=== PATIENT | female | born 1960 | race Caucasian/White ===

== ENCOUNTER 2018-02-01 19:26 | Emergency (ER) | payer OTHER ==
[2018-02-01 19:45] VITALS: BP 146/77
--- NOTE | 2018-02-01 20:03 | RAD ---
HISTORY: Pain, fall COMPARISONS: May 15, 2009 VIEWS: 3, Frontal, lateral, and oblique views of the right ankle FINDINGS: BONE DENSITY: Normal. BONES: There is no displaced fracture. JOINTS: There is no arthropathy. ALIGNMENT: There is no dislocation. SOFT TISSUES: Unremarkable. OTHER FINDINGS: None. IMPRESSION: NO ACUTE OSSEOUS INJURY. IF SYMPTOMS PERSIST, RECOMMEND REPEAT IMAGING.
--- NOTE | 2018-02-01 20:08 | UC ---
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 - History of Current Complaint Chief Complaint: UCLowerExtremity Stated Complaint: ANKLE INJURY Time Seen by Provider: 02/01/18 19:54 Hx Obtained From: Patient Onset/Duration: Sudden Onset Severity Initially: Moderate Severity Currently: Moderate Pain Intensity: 7 Pain Scale Used: 0-10 Numeric Aggravating Factor(s): Standing, Ambulation Alleviating Factor(s): Rest Able to Bear Weight: Yes - Allergies/Home Medications Allergies/Adverse Reactions: Allergies Allergy/AdvReac Type Severity Reaction Status Date / Time No Known Allergies Allergy Verified 02/01/18 19:45 PMH/Surg Hx/FS Hx/Imm Hx Previously Healthy: Yes - Surgical History Surgical History: Yes Surgery Procedure, Year, and Place: HYSTERECTOMY, RIGHT BREAST BIOPSY (BENIGN), TUBAL LIGATION, CHOLECYSTECTOMY - Family History Known Family History: Positive: Hypertension - Social History Alcohol Use: Rare Substance Use Type: None Smoking Status (MU): Never Smoked Tobacco Review of Systems Constitutional: Negative Skin: Negative Eyes: Negative ENT: Negative Respiratory: Negative Cardiovascular: Negative Gastrointestinal: Negative Genitourinary: Negative Motor: Negative Neurovascular: Negative Musculoskeletal: Arthralgia Neurological: Negative Psychological: Negative Is Patient Immunocompromised?: No All Other Systems Reviewed And Are Negative: Yes Physical Exam Triage Information Reviewed: Yes Appearance: Well-Appearing, No Pain Distress, Well-Nourished Vital Signs: Initial Vital Signs Temp 98.2 F 02/01/18 19:41 Pulse 100 02/01/18 19:41 Resp 16 02/01/18 19:41 BP 146/77 02/01/18 19:41 Pulse Ox 99 02/01/18 19:41 Vital Signs Reviewed: Yes Eyes: Positive: Conjunctiva Clear ENT: Positive: Hearing grossly normal. Negative: Nasal congestion, Nasal drainage, Muffled voice, Hoarse voice Neck: Positive: Supple, Nontender Respiratory: Positive: Chest non-tender, Lungs clear, Normal breath sounds, No respiratory distress Cardiovascular: Positive: RRR, No Murmur Musculoskeletal: Positive: Strength Intact, ROM Limited @ - right ankle, Edema @ - LM, Other: - achilles intact Neurological: Positive: Alert, Muscle Tone Normal Psychological Exam: Normal Skin Exam: Normal Diagnostics - Radiology No standard instances Xray Interpretation: No Acute Changes Radiology Interpretation Completed By: Radiologist Lower Extremity Course/Dx - Differential Dx/Diagnosis Provider Diagnoses: right ankle sprain Discharge - Sign-Out/Discharge Documenting (check all that apply): Discharge/Admit/Transfer - Discharge Plan Condition: Stable Disposition: HOME Patient Education Materials: Ankle Sprain (ED), R.I.C.E. Treatment (ED) Forms: *Work Release Referrals: Tomi Tinsley MD [Primary Care Provider] - Additional Instructions: rest elevate ice CAM boot crutches- may do light touch down as tolerated start wt bearing when able see your MD in 2 weeks if not wt bearing pain free advil or aleve - Billing Disposition and Condition Condition: STABLE Disposition: HOME
== END 2018-02-01 20:33 | disposition home or self-care (01) ==
LOC: UCEAST 19:26
DX: S93.401A Sprain of unspecified ligament of right ankle, initial encounter (principal); X50.1XXA Overexertion from prolonged static or awkward postures, initial encounter; Y93.9 Activity, unspecified; Y92.9 Unspecified place or not applicable
CPT/HCPCS: 99213; G0463

== ENCOUNTER 2018-10-12 08:50 | Day surgery (SDC) | payer OTHER ==
[~2018-10-12 08:50] MED LIST: Buffered Lidocaine 0.9% SYRIN* 5 ML/SYR SYRINGE INTRADERM ONE
[2018-10-12] MEDS ORDERED: Cyclopentolate 1% OPTH.SOL* 2 ML BTL ONE (09:17)
[2018-10-12] MEDS ORDERED: Neomycin/Polymy/Dex OPHTH.OIN* 3.5 GM ONE (09:18)
[2018-10-12] MEDS ORDERED: Ketorolac 0.5% OPHTH (NF) 0.5 % 5 ML BTL ONE (09:18)
[2018-10-12] MEDS ORDERED: Tetracaine 0.5% OPTH.SOL 4 ML* 1 DROP BTL ONE (09:18)
[2018-10-12] MEDS ORDERED: Tropicamide 1% OPTH.SOL* BTL ONE (09:18)
[2018-10-12] MEDS ORDERED: Lidocaine 1%* 5 ML VIAL ONE (09:18)
[2018-10-12] MEDS ORDERED: Midazolam* 1 MG/ML 2 ML VIAL (2 MG) ONE (11:03)
[2018-10-12 11:31] VITALS: BP 150/74
--- NOTE | 2018-10-12 13:14 | OP ---
DATE OF OPERATION/DATE OF DICTATION: 10/12/2018 - [facility] DATE OF : 1960. SURGEON: Dr. Alexy Diaz. PRESCHOOL PROGRAM DIRECTOR: None. ANESTHESIA: Topical with intravenous sedation. PRE-OP DIAGNOSIS: Cataract, right eye. POST-OP DIAGNOSIS: Cataract, right eye. OPERATIVE PROCEDURE: Phacoemulsification and cataract extraction with posterior chamber intraocular lens implant, right eye. COMPLICATIONS: None. BLOOD LOSS: None. DESCRIPTION OF PROCEDURE: The patient was brought to the operating room and received a small amount of intra-venous sedation. A drop of Tetracaine was placed in her right eye. She was prepped and draped in the usual sterile fashion for ophthalmic surgery and attention was directed to the right eye where a speculum was placed. A paracentesis was created at the 11 o'clock position and 0.1 cc of 1 percent preservative-free Lidocaine was injected into the anterior chamber followed by DisCoVisc. The eye was digitally stabilized while a 2.75 mm keratome was used to create a triplanar clear corneal incision at the 9 o'clock position. A continuous curvilinear capsulorrhexis was created with a cystotome and Utrata forceps. BSS on a cannula was used to hydrodissect the lens from the capsule. Phacoemulsification was performed in a divide-and- conquer technique to create four fragments which were removed. Residual cortical material was removed with irrigation and aspiration. DisCoVisc was used to inflate the capsular bag and an AUOOTO 16.5 diopter lens was folded and inserted into the capsular bag. DisCoVisc was removed using irrigation and aspiration. BSS on a cannula was used to hydrate the corneal stroma and seal the wound. At the end of the case the pupil was round and the lens was centered. The eye was of normal pressure and the wound was water tight. The speculum was removed and topical Maxitrol ointment was placed on the surface of the eye. The eye was closed, patched and shielded and the patient was sent to the recovery room in stable condition with post operative instructions and follow-up appointment given. [id number]/CPS #: [id number] MTDD
== END 2018-10-12 11:38 | disposition home or self-care (01) ==
LOC: OREAST 08:50
PROVIDERS: ATTEND Ophthalmology
DX: H25.11 Age-related nuclear cataract, right eye (principal); I10 Essential (primary) hypertension; J45.909 Unspecified asthma, uncomplicated; K21.9 Gastro-esophageal reflux disease without esophagitis; F41.8 Other specified anxiety disorders; E78.00 Pure hypercholesterolemia, unspecified
CPT/HCPCS: A9270-GY; J2250; V2632

== ENCOUNTER 2018-10-19 06:37 | Day surgery (SDC) | payer OTHER ==
[2018-10-19] MEDS ORDERED: Buffered Lidocaine 1% SYRIN* 1 ML/SYRINGE INTRADERM ONE (07:08)
[2018-10-19] MEDS ORDERED: Midazolam* 1 MG/ML 2 ML VIAL (2 MG) ONE (07:35)
[2018-10-19] MEDS ORDERED: fentaNYL* 50 MCG/ML 2 ML VIAL (100 MCG VIAL) ONE (07:35)
[2018-10-19 08:51] VITALS: BP 130/78
[2018-10-19] MEDS ORDERED: Cyclopentolate 1% OPTH.SOL* 2 ML BTL ONE (11:11)
[2018-10-19] MEDS ORDERED: Ketorolac 0.5% OPHTH (NF) 0.5 % 5 ML BTL ONE (11:11)
[2018-10-19] MEDS ORDERED: Tetracaine 0.5% OPTH.SOL 4 ML* 1 DROP BTL ONE (11:11)
[2018-10-19] MEDS ORDERED: Phenylephrine 2.5% OPTH.SOL* 2 ML BTL ONE (11:11)
[2018-10-19] MEDS ORDERED: Lidocaine 1%* 5 ML VIAL ONE (11:11)
[2018-10-19] MEDS ORDERED: Tropicamide 1% OPTH.SOL* BTL ONE (11:11)
[2018-10-19] MEDS ORDERED: Neomycin/Polymy/Dex OPHTH.OIN* 3.5 GM ONE (11:11)
--- NOTE | 2018-10-19 14:59 | OP ---
DATE OF OPERATION: 10/19/18 [facility] DATE OF : 60 SURGEON: Dr. Alexy Diaz. PERINATAL TECH: None. ANESTHESIA: Topical with intravenous sedation. PRE-OP DIAGNOSIS: Cataract in the left eye with stigmatism. POST-OP DIAGNOSIS: Cataract in the left eye with stigmatism. OPERATIVE PROCEDURE: Phacoemulsification and cataract extraction with posterior chamber intraocular Toric lens implant. COMPLICATIONS: None. BLOOD LOSS: None. DESCRIPTION OF PROCEDURE: The patient was seen preoperatively in the holding area, where she was sat in an upright position. A lilia was made at the 6 o' clock position of the limbus of the left eye with a marking pen. The patient was subsequently brought to the operating room where she was given a small amount of intravenous sedation and a drop of Tetracaine was placed in her left eye. She was prepped and draped in the usual sterile fashion for ophthalmic surgery and attention was directed to the left eye where a speculum was placed. A paracentesis was created at the 5 o'clock position and 0.1 cc of 1% preservative-free Lidocaine was injected into the anterior chamber followed by DisCoVisc. The eye was digitally stabilized while a 2.75-mm keratome was used to create a triplanar clear corneal incision at the 3 o'clock position. A continuous curvilinear capsulorrhexis was created with a cystotome and Utrata forceps. BSS on a cannula was used to hydrodissect the lens from the capsule. Phacoemulsification was performed in a divide-and- conquer technique to create four fragments, which were removed. Residual cortical material was removed with irrigation and aspiration. The eye was inflated with Provisc. A marker was used to lilia a 70-degree axis at the limbus. The eye was lubricated and the ORA was used to check the lens implant power prediction. The ORA confirmed the selection of an 18 diopter lens. The ORA also confirmed using a T3 Toric lens. The ORA recommended an axis of 82 degrees. An [id number] lens was folded and inserted into the capsular bag. The lens was rotated to the 82 degree axis as judged by the reticule on the microscope through the ORA. The eye was then reinflated with Provisc of proper pressure and the ORA was reemployed to show that no rotation was necessary of the lens. Irrigation and aspiration was then performed to remove viscoelastic from the eye. Care was taken to keep the lens in the same position. The eye was hydrated at the stroma using BSS. At the end of the case, the pupil was round. The lens was centered stable in axial line. The eye pressure appeared normal. The wound was water tight. The speculum was removed and topical Maxitrol ointment was placed on the surface of the eye. The eye was closed, patched and shielded and the patient was sent to the recovery room in stable condition with postop instructions and follow-up appointment given. [id number]/CPS #: [id number] FABIOLA
[2018-10-20] MEDS ORDERED: Acetaminophen TAB* 325 MG PO PRN (05:00)
== END 2018-10-19 09:00 | disposition home or self-care (01) ==
LOC: OREAST 06:37
PROVIDERS: ATTEND Ophthalmology
DX: H25.12 Age-related nuclear cataract, left eye (principal); I10 Essential (primary) hypertension; E78.00 Pure hypercholesterolemia, unspecified; J45.909 Unspecified asthma, uncomplicated; F32.9 Major depressive disorder, single episode, unspecified; Z79.899 Other long term (current) drug therapy; H52.202 Unspecified astigmatism, left eye
CPT/HCPCS: A9270-GY; J2250; J3010; V2787

== ENCOUNTER 2019-06-12 10:10 | Emergency (ER) | payer OTHER ==
--- OUTSIDE RECORDS SUMMARY | 2019-06-12 10:15 | XMS REPORT | Continuity of Care Document ---
:1960 External Reference #:[id number] Author Name Tomi Tinsley M.D. Address [address] [place] [address] Care Team Providers Name Role Phone Tomi Tinsley MD - Family Medicine Care Team Information [place] [employer] Captain [phone] [facility] - Care Team Information [place] Service Captain [phone] Gastroenterology Vamshi Robbins ([place] [facility]) Care Team Information [place] Service Captain - Otolaryngology Joe Hoffman MD - Care Team Information [place] Service Captain [phone] Otolaryngology Problems Active Problems Provider Date Hyperlipidemia Tomi Tinsley M.D. Onset: 02/08/2013 Asthma without status asthmaticus Tomi Tinsley M.D. Onset: 02/08/2013 Gastroesophageal reflux disease Tomi Tinsley M.D. Onset: 02/08/2013 Prinzmetal angina Tomi Tinsley M.D. Onset: 02/08/2013 Symptom of skin and integumentary tissue Tomi Tinsley M.D. Onset: 2012 Family history of breast cancer Tomi Tinsley M.D. Onset: 02/08/2013 History of polyp of colon Tomi Tinsley M.D. Onset: 06/02/2019 Female climacteric state Tomi Tinsley M.D. Onset: 06/02/2019 Social History Type Date Description Comments Sex Unknown Tobacco Use Start: Unknown Nonsmoker ETOH Use Rare Tobacco Use Start: Unknown Patient has never smoked Smoking Status Reviewed: 01/24/19 Patient has never smoked Allergies, Adverse Reactions, Alerts Active Allergies Reaction Severity Comments Date NKDA 09/10/2011 Environmental 10/10/2010 Seasonal 10/10/2010 Medications Active Medications SIG Qnty Indications Ordering Provider Date Venlafaxine HCL ER 1 by mouth every 90caps Tomi Tinsley, 06/02/2019 day M.D. 75mg Caps ER 24HR Proair HFA take 1-2 puffs 8.500gm Shannan C. 05/25/2018 prior to exercise JOSE E Lenz 108(90Base) mcg/Act and as needed for Aerosol wheezing and difficulty breathing Mometasone Furoate apply three times 45gm Tomi Allison Tinsley, 11/19/2017 a day as needed M.D. 0.1% Cream Nitrostat 1 sl as needed, 25tabs Tomi Tinsley, 08/11/2013 0.4mg repeat every 5 M.D. Tablets Sub minutes up to three tabs, call 911 Omeprazole Take One Capsule 90caps Tomi Tinsley, 03/07/2013 20mg By Mouth Every M.D. Capsules Day Montelukast Sodium Take 1 Tablet By 90tabs Tomi Tinsley, 09/08/2012 Mouth AT Bedtime M.D. 10mg Tablets Asa po qd Family Medicine 11/04/2007 81mg [facility] K-Dur 1 po qd Tomi Tinsley, 20Meq Tablets M.D. ER Rosuvastatin Calcium 1 by mouth every Tomi F. Alvina, day M.D. 20mg Tablets Norvasc 1 by mouth every Tomi F. Alvina, 5mg Tablets day M.D. History Medications Transderm-Scop (1.5 MG) apply 1 patch 3units Tomi Tinsley, 2018 - every 72 hours M.D. 06/02/2019 1mg/3Days Patches 72HR staff to count 3 days Meclizine HCL 1/2 -1 tab po 30tabs Denia Dos Santos, 01/24/2019 - 25mg Tablets tid prn nausea Afnp-C 02/03/2019 Medications Administered in Office Medication SIG Qnty Indications Ordering Provider Date Injection Subcutaneous Or Dilan Mcqueen M.D. 09/05/2002 Intramuscular Injection Immunizations CPT Code Status Date Vaccine Lot # [id number] Given 08/07/2018 Influenza Virus Vaccine, Recombinant Dna, [id number] [place] [address] Given 08/22/2017 Influenza Vac, Quadrivalent, Slit Virus, Im [id number] 02332 Given 07/16/2016 Pneumococcal Immunization [id number] 49047 Given 07/16/2016 Influenza Vac, Quadrivalent, Slit Virus, Im [id number] 07505 Given 08/16/2015 Influenza Vac, Quadrivalent, Slit Virus, Im [id number] 57059 Given 09/12/2014 Influenza Vac, Quadrivalent, Slit Virus, Im [id number] 22376 Given 08/11/2013 Tdap Tetanus, W Pertussis [id number] 99999 Given 08/11/2013 DO Not Use Split Influenza Virus Vaccine [id number] 72055 Given 09/15/2012 DO Not Use Split Influenza Virus Vaccine [id number] 75781 Given 06/24/2011 DO Not Use Split Influenza Virus Vaccine [id number] 93440 Given 06/18/2010 DO Not Use Split Influenza Virus Vaccine [id number] 63490 Given 10/18/2009 H1N1 Virus Vaccine [id number] 92703 Given 10/18/2009 H1N1 Immunization Intramuscular/Intranasal W Counseling 40807 Given 04/04/2008 Tetanus And Diptheria Adult Preservative Free >7Yrs 29434 Given 07/19/2007 DO Not Use Split Influenza Virus Vaccine [id number] 32575 Given 08/13/2006 DO Not Use Split Influenza Virus Vaccine [id number] 62551 Given 07/25/2003 DO Not Use Split Influenza Virus Vaccine Vital Signs Date Vital Result Comment 06/02/2019 9:22am BP Systolic 118 mmHg BP Diastolic 78 mmHg Heart Rate 92 /min Body Temperature 98.1 F Respiratory Rate 16 /min Height 62 inches 5'2" Weight 201.00 lb BMI (Body Mass Index) 36.8 kg/m2 02/03/2019 3:55pm BP Systolic 106 mmHg BP Diastolic 70 mmHg Heart Rate 84 /min Body Temperature 97.9 F Respiratory Rate 16 /min Height 62 inches 5'2" Weight 202.00 lb BMI (Body Mass Index) 36.9 kg/m2 Results Test Date Facility Test Result H/L Range Note Laboratory test 06/02/2019 [facility] FSH (Follicle 66.5 mIU/mL 1 finding Stim Hormone) C Reactive Protein 3.47 mg/L Normal <8.01 2 Comprehensive Metabolic 06/02/2019 [facility]) Sodium 137 mEq/L 134-149 Prof Potassium 4.1 mEq/L 3.6-5.5 Chloride 102 mEq/L 94-112 Carbon Dioxide 28 mEq/L 21-32 Glucose 101 mg/dL 70-105 BUN 12 mg/dL 6-26 Creatinine 0.7 mg/dL 0.6-1.4 BUN/Creat Ratio 17.1 CALC 8.0-36.0 Calcium 9.6 mg/dL 8.6-10.2 Total Protein 7.1 g/dL 6.4-8.3 Albumin 4.6 g/dL 3.8-5.5 Globulin 2.5 g/dL 2.0-4.8 A/G Ratio 1.8 CALC 0.6-2.3 Alk. Phosphatase 90 U/L 30-110 Alt (SGPT) 67 U/L High 7-35 Ast (Sgot) 37 U/L High 5-34 Total Bilirubin 0.5 mg/dL 0.2-1.3 GFR Non- >60 ml/min/1.73m^ >=60 GFR >60 ml/min/1.73m^ >=60 Lipid Profile 06/02/2019 [facility]) Cholesterol 168 mg/dL 120- 200 Triglycerides 160 mg/dL 30-200 HDL Cholesterol 49 mg/dL 30-85 LDL (Calculated) 87 CALC 0-129 VLDL Cholesterol 32 mg/dL 0-50 HDL Risk Factor 3.4 CALC 0.0-4.4 Laboratory test finding 06/02/2019 [facility](a) TSH 2.19 mIU/L 0.50-6.00 Free T4 1.11 ng/dL 0.75-1.54 CBC Electronic Fma 06/02/2019 [facility](a) WBC 5.8 x10^3/UL 4.0- 10.0 RBC 4.82 x10^6/UL 3.93-6.00 HGB 14.3 g/dL 12.0-17.0 HCT 43 % 35-50 MCV 88.6 fL 80.0-95.0 MCH 29.7 pg 25.6-32.2 MCHC 33.5 g/dL 32.2-36.0 RDW-CV 12.6 % 11.6-14.4 PLT 259 x10^3/UL 163-400 MPV 10.4 fL 9.4-12.4 Moe# 3.08 x10^3/UL 1.56-6.13 Lymph# 2.06 x10^3/UL 1.18-3.74 [place]# 0.48 x10^3/UL 0.24-0.82 Eos # 0.1 x10^3/UL 0.0-0.5 Baso # 0.04 x10^3/UL 0.01-0.08 Moe% 53.1 % 34.0-70.0 Lymph % 35.5 % 20.0-52.0 [place]% 8.3 % 5.0-12.0 Eos% 2.2 % 0.7-7.0 Baso% 0.7 % 0.1-1.2 Comprehensive Metabolic 02/01/2019 [facility](a) Sodium 142 mEq/L 134-149 Prof Potassium 4.5 mEq/L 3.6-5.5 Chloride 104 mEq/L 94-112 Carbon Dioxide 27 mEq/L 21-32 Glucose 103 mg/dL 70-105 BUN 19 mg/dL 6-26 Creatinine 0.8 mg/dL 0.6-1.4 BUN/Creat Ratio 23.8 CALC 8.0-36.0 Calcium 9.8 mg/dL 8.6-10.2 Total Protein 7.0 g/dL 6.4-8.3 Albumin 4.5 g/dL 3.8-5.5 Globulin 2.5 g/dL 2.0-4.8 A/G Ratio 1.8 CALC 0.6-2.3 Alk. Phosphatase 105 U/L 30-110 Alt (SGPT) 58 U/L High 7-35 3 Ast (Sgot) 29 U/L 5-34 Total Bilirubin 0.4 mg/dL 0.2-1.3 GFR Non- >60 ml/min/1.73m^ >=60 GFR >60 ml/min/1.73m^ >=60 Laboratory test finding 02/01/2019 [facility](a) TSH 3.30 mIU/L 0.50-6.00 CBC Electronic Fma 02/01/2019 [facility](fma) WBC 7.0 x10^3/UL 4.0- 10.0 RBC 4.48 x10^6/UL 3.93-6.00 HGB 13.5 g/dL 12.0-17.0 HCT 40 % 35-50 MCV 88.6 fL 80.0-95.0 MCH 30.1 pg 25.6-32.2 MCHC 34.0 g/dL 32.2-36.0 RDW-CV 12.7 % 11.6-14.4 PLT 298 x10^3/UL 163-400 MPV 10.7 fL 9.4-12.4 Moe# 4.15 x10^3/UL 1.56-6.13 Lymph# 2.08 x10^3/UL 1.18-3.74 [place]# 0.65 x10^3/UL 0.24-0.82 Eos # 0.1 x10^3/UL 0.0-0.5 Baso # 0.03 x10^3/UL 0.01-0.08 Moe% 59.2 % 34.0-70.0 Lymph % 29.6 % 20.0-52.0 [place]% 9.3 % 5.0-12.0 Eos% 1.4 % 0.7-7.0 Baso% 0.4 % 0.1-1.2 1 Normally menstruating females - Follicular phase 3 - 9 - Mid-cycle peak 4 - 23 - Luteal phase 1 - 6 Postmenopausal females 16 - 114 2 FASTING 1 serum pour off from red top tube [id number] consistent w/ previous results Procedures Date Code Description Status 10/20/2018 [id number] Mammogram Completed 09/04/2018 [id number] Mammogram Completed 05/12/2017 [id number] Mammogram Completed 06/14/2015 [id number] Mammogram Completed 06/06/2014 [id number] Colonoscopy Completed 03/21/2014 [id number] Mammogram Completed 02/22/2013 [id number] Mammogram Completed 07/03/2011 [id number] Mammogram Completed 04/29/2011 [id number] Colonoscopy Completed 06/24/2010 [id number] Mammogram Completed Medical Devices Description No Information Available Encounters Type Date Location Provider Dx Diagnosis Office Visit 02/03/2019 Main Office Tomi F. H81.13 Benign paroxysmal 3:00p Brittney Tinsley vertigo, bilateral Office Visit 01/24/2019 [facility] Office Denia A09 Infectious 2:15p [place], gastroenteritis and Afnp-C colitis, unspecified H81.399 Other peripheral vertigo, unspecified ear Assessments Date Code Description Provider 06/02/2019 I20.1 Angina pectoris with documented spasm Tomi Tinsley M.D. 06/02/2019 Z80.3 Family history of malignant neoplasm of Tomi Tinsley M.D. breast 06/02/2019 K21.9 Gastro-esophageal reflux disease without Tomi Tinsley M.D. esophagitis 06/02/2019 J45.998 Other asthma Tomi Tinsley M.D. 06/02/2019 N95.1 Menopausal and female climacteric states Tomi Tinsley M.D. 06/02/2019 Z86.010 Personal history of colonic polyps Tomi Tinsley M.D. 06/02/2019 Z00.00 Encounter for general adult medical Tomi Tinsley M.D. examination without abnormal findings 02/03/2019 H81.13 Benign paroxysmal vertigo, bilateral Tomi Tinsley M.D. 02/01/2019 R42 Dizziness and giddiness Lamin Waite-C 01/24/2019 A09 Infectious gastroenteritis and colitis, Jeffreynp-C unspecified 01/24/2019 H81.399 Other peripheral vertigo, unspecified ear Lamin Waite-Kendra Plan of Treatment 06/02/2019 - Tomi Tinsley M.D.I20.1 Angina pectoris with documented spasmComments:Continue routine followup with Dr. Parker, patient will change to venlafaxine for improvement in hervascular instability, sweats due to menopause , to screen for other tcjhesiuF65.3 Family history of malignant neoplasm of breastComments:Yearly mammogram in October of 2019K21.9 Gastro-esophageal reflux disease without esophagitisComments:continue termdlqmzlG74.998 Other asthmaComments:Symptoms of asthma are stable and current medications, Singulair and albuterol prnN95.1 Menopausal and female climacteric statesComments:Await lab work, discontinue escitalopram and try low dose, Effexor (venlafaxine) Z86.010 Personal history of colonic polypsComments:set up qgiwfkdtyuoL36.00 Encounter for general adult medical examination without abnormal findingsNew Labs:Ua - Non Micro (Fma), Ordered: 06/02/19Ict Hemoccult (F[facility]), Ordered: Comments:Patient obtain seasonal flu shots, advised Shingrix vaccination to prevent shingles, continue with yearly dermatology examinations, mammogram in October of 2019, we will set up a repeat colonoscopy, patient to contact us in 2 weeks regarding her feelings of excessive heat and sweats, she will try to take her temperature during these episodesFollow up:Followup:. (Follow up) AllNew Medication:Venlafaxine HCL ER 75 mg - 1 by mouth every dayComments: Medication Management Patient Understands medications she's taking? Yes No Are there Barriers to Adherence? Yes No Has the patient been asked about herbal supplements and therapies, and OTC meds? Yes No Patient was given anticipatory guidance regarding routine health care screenings , immunizations, and primary prevention of illness. Functional Status Description No Information Available Mental Status Description No Information Available Referrals Refer to Reason for Referral Status Appt Date Joe Hoffman MD Scheduled 03/03/2019 [address] [place] [address] [phone]
[2019-06-12 11:40] VITALS: BP 130/81
--- NOTE | 2019-06-12 11:59 | UC ---
Ear Complaint HPI - HPI Summary HPI Summary: pt states during the night she felt a pop to her lt ear. when she woke up there was blood on her pillow and some in her outer ear. pt has been dealing with vertigo for the past few months. denies putting any FB in her L ear. - History of Current Complaint Chief Complaint: UCEar Stated Complaint: BLOOD IN L EAR Time Seen by Provider: 06/12/19 11:58 Hx Obtained From: Patient Onset/Duration: Sudden Onset Pain Intensity: 4 Pain Scale Used: 0-10 Numeric Aggravating Factors: Nothing Alleviating Factors: Nothing Associated Signs/Symptoms: Negative: Discharge, Hearing Loss, Foreign Body Sensation, Swelling @ - Allergies/Home Medications Allergies/Adverse Reactions: Allergies Allergy/AdvReac Type Severity Reaction Status Date / Time No Known Allergies Allergy Verified 06/12/19 11:40 Home Medications: Home Medications Venlafaxine TAB (NF) [Effexor TAB (NF)] 75 mg PO DAILY 06/12/19 [History Confirmed 06/12/19] PMH/Surg Hx/FS Hx/Imm Hx Previously Healthy: Yes Cardiovascular History: Cardiac Disease, Hypertension GI/ History: Gastroesophageal Reflux - Surgical History Surgical History: Yes Surgery Procedure, Year, and Place: HYSTERECTOMY, RIGHT BREAST BIOPSY (BENIGN), TUBAL LIGATION, CHOLECYSTECTOMY - Family History Known Family History: Positive: Hypertension - Social History Alcohol Use: Rare Substance Use Type: None Smoking Status (MU): Never Smoked Tobacco Review of Systems All Other Systems Reviewed And Are Negative: Yes Constitutional: Negative: Fever Skin: Negative: Rash Eyes: Negative: Drainage ENT: Positive: Other - bleeding from L ear. Negative: Sore Throat, Ear Ache, Nasal Discharge Respiratory: Negative: Shortness Of Breath, Cough Cardiovascular: Negative: Palpitations Neurological: Negative: Headache, Weakness Is Patient Immunocompromised?: No Physical Exam Triage Information Reviewed: Yes Appearance: Well-Appearing Vital Signs: Initial Vital Signs Temp 98.3 F 06/12/19 11:36 Pulse 78 06/12/19 11:36 Resp 18 06/12/19 11:36 BP 130/81 06/12/19 11:36 Pulse Ox 98 06/12/19 11:36 Vital Signs Reviewed: Yes Eyes: Positive: Conjunctiva Clear ENT: Positive: Pharynx normal, TMs normal - RIGHT, Other - L canal bleeding and TM appears to be intact. Just past opening there seems to be tissue that is bleeding actively and 4 Q tips were used w/ some hemostasis. no pus and no pain Ear Complaint Course/Dx - Course Course Of Treatment: Unclear etiology of L canal bleeding. There appeared to be some tissue in the canal that was bleeding but she denied pain or FB use. Vitals good. Plan is to send her to ENT for sung evaluation and it is reassuring that she has No hearing loss. - Differential Dx/Diagnosis Differential Diagnosis/HQI/PQRI: Barotrauma, Perforated TM, Other Provider Diagnosis: Hemotympanum Discharge ED - Sign-Out/Discharge Documenting (check all that apply): Patient Departure All imaging exams completed and their final reports reviewed: No Studies - Discharge Plan Condition: Good Disposition: HOME Patient Education Materials: Otitis Externa (ED) Referrals: Trung Vargas MD [Medical Doctor] - 2 Days (L canal bleeding w/ TM intact and ? lesions in canal.) Additional Instructions: Please call the ENT office tomorrow to make appt. - Billing Disposition and Condition Condition: GOOD Disposition: Home
== END 2019-06-12 12:16 | disposition home or self-care (01) ==
LOC: UCEAST 10:10
DX: H73.892 Other specified disorders of tympanic membrane, left ear (principal); I10 Essential (primary) hypertension; K21.9 Gastro-esophageal reflux disease without esophagitis
CPT/HCPCS: 99211; G0463

== ENCOUNTER 2019-06-14 13:33 | Emergency (ER) | payer OTHER ==
--- OUTSIDE RECORDS SUMMARY | 2019-06-14 14:16 | XMS REPORT | Continuity of Care Document ---
:1960 External Reference #:[id number] Author Name Elsie Hough PA-C Address [address] [place] [address] Care Team Providers Name Role Phone Tomi Tinsley M.D. 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 [phone] Problems Active Problems Provider Date Essential hypertension Tristen Hoffman MD Onset: 03/03/2019 Social History Type Date Description Comments Sex Unknown Cigarette Use Negative For Current Cigarette Smoker Tobacco Use Start: Unknown Never Smoked Cigars Tobacco Use Start: Unknown Never Smoked A Pipe Smokeless Tobacco Never Used Smokeless Tobacco ETOH Use does not drink alcohol Tobacco Use Start: Unknown Patient has never smoked Smoking Status Reviewed: 06/13/19 Patient has never smoked Allergies, Adverse Reactions, Alerts Description No Known Drug Allergies Medications Active Medications SIG Qnty Indications Ordering Provider Date Ofloxacin (Ophthalmic) 3 drops affected 15ml H92.12 Tristen Hoffman 2018 ear twice a day 0.3% Solution Potassium Chlorate Unknown Aspir-81 Unknown 81mg Tablets Amlodipine Besylate Take 2 Tablets By Unknown 2.5mg Mouth Every Day Tablets Escitalopram Oxalate Take 1 Tablet By Unknown 10mg Mouth Every Day Tablets Montelukast Sodium Take 1 Tablet By Unknown 10mg Mouth AT Bedtime Tablets Omeprazole Take One Capsule Unknown 20mg Capsules By Mouth Every Day Rosuvastatin Calcium Take 1 Tablet By Unknown 20mg Mouth Every Day Tablets Transderm-Scop (1.5 Tomi Tinsley MG) M.DEddie 1mg/3Days Patches 72HR Venlafaxine HCL ER Take 1 Capsule By Unknown 75mg Mouth Every Day Caps ER 24HR Immunizations Description No Information Available Vital Signs Date Vital Result Comment 06/13/2019 9:16am Weight 204.00 lb Weight 92.534 kg Height 63 inches 5'3" Height in cm's 160.0 cm BMI (Body Mass Index) 36.1 kg/m2 03/03/2019 2:30pm Weight 204.00 lb Weight 92.534 kg Height 63 inches 5'3" Height in cm's 160.0 cm BMI (Body Mass Index) 36.1 kg/m2 Results Description No Information Available Procedures Date Code Description Status 06/13/2019 91624 Binocular Microscopy Completed 03/03/2019 52317 Tympanometry Completed 03/03/2019 33603 Comprehensive Audiogram Completed Medical Devices Description No Information Available Encounters Type Date Location Provider Dx Diagnosis Office Visit 06/13/2019 [facility] Elsie Hough, H60.8x2 Other otitis 9:15a 10/05/07 [facility] externa, left ear H92.12 Otorrhea, left ear J30.89 Other allergic rhinitis 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, unspecified ear Office 03/03/2019 [facility] Hoffman M26.601 Right Visit 2:30p 10/05/07 Tristen ENAMORADO temporomandibular joint disorder, unspecified H92.09 Otalgia, unspecified ear 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, unspecified ear Assessments Date Code Description Provider 06/13/2019 H60.8x2 Other otitis externa, left ear Elsie Hough PA-C 06/13/2019 H92.12 Otorrhea, left ear Elsie Hough PA-C 06/13/2019 J30.89 Other allergic rhinitis Elsie Hough PA-C 06/13/2019 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, unspecified ear Elsie Hough PA-C 03/03/2019 M26.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 Tristen Hoffman MD disorder, unspecified 03/03/2019 H92.09 Otalgia, unspecified ear Tab Staley MA, CCC-A 03/03/2019 H92.09 Otalgia, unspecified ear Tristen Hoffman MD 03/03/2019 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, unspecified ear Tab Staley MA, CCC-A 03/03/2019 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
[2019-06-14] MEDS ORDERED: Acetaminophen TAB* 325 MG PO ONE (15:29)
[2019-06-14] MEDS ORDERED: Ibuprofen TAB* 600 MG PO ONE (15:29)
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
[2019-06-14 15:47] VITALS: BP 129/79
== END 2019-06-14 15:45 | disposition home or self-care (01) ==
LOC: ED 13:33
DX: M25.552 Pain in left hip (principal); M25.532 Pain in left wrist; M79.662 Pain in left lower leg; V43.52XA Car driver injured in collision with other type car in traffic accident, initial encounter; Y92.410 Unspecified street and highway as the place of occurrence of the external cause; R51 Headache; I20.9 Angina pectoris, unspecified
CPT/HCPCS: 99282; A9270-GY